=== PATIENT | male | born 1940 | race Caucasian/White ===

== ENCOUNTER 2017-08-08 17:15 | Emergency (ER) | payer MEDICARE ==
[~2017-08-08] VITALS: Ht 182.9 cm; Wt 95.0 kg
[2017-08-08 18:54] LABS: BASOPHILS % (AUTO) 0.5 % (0-1); EOSINOPHILS # (AUTO) 0.2 X10'3 (0-0.9); HEMATOCRIT 42.4 % (42.0-52.0); HEMOGLOBIN 14.8 g/dl (14.0-17.9); LYMPHOCYTES # (AUTO) 2.2 X10'3 (1.1-4.8); MEAN CORPUSCULAR VOLUME 94.3 FL (78-98); MEAN PLATELET VOLUME 10.7 FL (7.4-10.4); MONOCYTES # (AUTO) 0.7 X10'3 (0-0.9); MONOCYTES % (AUTO) 9.7 % (2-12); NEUTROPHILS # (AUTO) 3.8 X10'3 (1.8-7.7); NEUTROPHILS % (AUTO) 54.8 % (42-75); PLATELET COUNT 167 X10'3 (140-440); RED BLOOD COUNT 4.49 X10'6 (4.70-6.10); RED CELL DISTRIBUTION WIDTH 14.3 % (11.5-14.5)
[2017-08-08 19:04] LABS: INR 1.2 INR; PARTIAL THROMBOPLASTIN TIME 32 SECONDS (22-32)
[2017-08-08 19:11] LABS: ALANINE AMINOTRANSFERASE 34 U/L (12-78); ALBUMIN 3.1 G/DL (3.4-5.0); ALBUMIN/GLOBULIN RATIO 0.8 (1.1-1.5); ALKALINE PHOSPHATASE 63 IU/L (46-116); ANION GAP 12 (8-16); ASPARTATE AMINO TRANSFERASE 20 U/L (10-37); BILIRUBIN,TOTAL 0.4 MG/DL (0.1-1.0); BLOOD UREA NITROGEN 17 MG/DL (7-18); BUN/CREATININE RATIO 16.5 (5.4-32.0); CHLORIDE 104 MMOL/L (99-107); CREATININE 1.03 MG/DL (0.60-1.10); GLUCOSE 118 MG/DL (70-104); POTASSIUM 3.3 MMOL/L (3.5-5.1); SODIUM 144 MMOL/L (135-145); TOTAL CARBON DIOXIDE 28.5 MMOL/L (24-32); TOTAL PROTEIN 7.2 G/DL (6.4-8.2); TROPONIN I < 0.04 NG/ML (0.0-0.05); eGFR 70 ML/MIN
[2017-08-08 19:25] LABS: ETHANOL < 0.010 GM/DL (0.0-0.010)
[2017-08-08 20:44] LABS: CLARITY,URINE Clear (Clear); COLOR,URINE Yellow (Yellow); GLUCOSE, URINE Negative (Neg); KETONES,URINE Negative (Neg); LEUKOCYTE ESTERASE ,URINE Negative (Neg); NITRITES, URINE Negative (Neg); OCCULT BLOOD,URINE Negative (Neg); PH,URINE 5.5 (4.8-8.0); PROTEIN,URINE Negative (Neg)
[2017-08-08 20:46] LABS: UA COLLECTION TYPE NON-SPECIFIED
[2017-08-08 20:49] VITALS: BP 118/61
[2017-08-08 20:49] LABS: URINE AMPHETAMINE SCREEN NEGATIVE (Neg); URINE BARBITUATE SCREEN NEGATIVE (Neg); URINE BENZODIAZEPINES SCREEN NEGATIVE (Neg); URINE CANNABINOID SCREEN NEGATIVE (Neg); URINE COCAINE SCREEN NEGATIVE (Neg); URINE METHADONE SCREEN NEGATIVE (Neg); URINE OPIATE SCREEN NEGATIVE (Neg); URINE PHENCYCLIDINE SCREEN NEGATIVE (Neg)
[2017-08-08 21:10] LABS: LARGE PLATELETS FEW; PLATELET ESTIMATE NORMAL
== END 2017-08-08 20:50 | disposition home or self-care (01) ==
LOC: ER 17:16
DX: H53.40 Unspecified visual field defects (principal); F12.10 Cannabis abuse, uncomplicated; E03.9 Hypothyroidism, unspecified; I48.91 Unspecified atrial fibrillation
CPT/HCPCS: 36415; 70450; 71045; 80053; 80305; 80320; 81003; 82140; 82948; 84439; 84443; 84484; 85025; 85610; 85730; 87040; 93005; 99285

== ENCOUNTER → 2018-07-20 | Emergency (ER) | payer MEDICARE ==
[~2018-07-20] VITALS: Ht 182.9 cm; Wt 92.7 kg
[~2018-07-20] MED LIST: GABA100C PO
[2018-07-20 12:01] VITALS: BP 129/74
== END | disposition home or self-care (01) ==
LOC: ER 11:32
DX: M54.16 Radiculopathy, lumbar region (principal); M25.552 Pain in left hip; I48.91 Unspecified atrial fibrillation; I10 Essential (primary) hypertension; E03.9 Hypothyroidism, unspecified; F12.90 Cannabis use, unspecified, uncomplicated; Z79.899 Other long term (current) drug therapy; W18.39XA Other fall on same level, initial encounter; Y93.89 Activity, other specified; Y92.89 Other specified places as the place of occurrence of the external cause; Y99.8 Other external cause status
CPT/HCPCS: 72100; 73502; 99284

== ENCOUNTER 2018-09-10 08:15 | Emergency (ER) | payer MEDICARE ==
[~2018-09-10] VITALS: Ht 182.9 cm; Wt 77.0 kg
[2018-09-10 08:22] VITALS: BP 130/75
[2018-09-10] MEDS ORDERED: CEPH-572 PO (09:01)
[2018-09-10] MEDS ORDERED: TETanus/Pertussis (Acell)/Diphther VAC/PF (Tdap-Adult) 0.5ml syringe IM ONE (09:10)
== END 2018-09-10 09:28 | disposition home or self-care (01) ==
LOC: ER 08:16
DX: L03.032 Cellulitis of left toe (principal); I48.91 Unspecified atrial fibrillation; I10 Essential (primary) hypertension; E03.9 Hypothyroidism, unspecified; F12.90 Cannabis use, unspecified, uncomplicated; Z79.899 Other long term (current) drug therapy
CPT/HCPCS: 90471; 90715; 99283

== ENCOUNTER 2018-09-14 20:18 | Emergency (ER) | payer MEDICARE ==
[~2018-09-14] VITALS: Ht 182.9 cm; Wt 90.0 kg
[~2018-09-14 20:18] MED LIST changes: +CEPH-572 PO
[2018-09-14 20:31] VITALS: BP 127/84
[2018-09-14] MEDS ORDERED: LIDOcaine 1% w/epiNEPHrine 1:200,000 30ml vial IM ONE (21:25)
[2018-09-14] MEDS ORDERED: SULF1TAB49 PO (21:28)
== END 2018-09-14 23:39 | disposition home or self-care (01) ==
LOC: ER 20:19
DX: L02.612 Cutaneous abscess of left foot (principal); I48.91 Unspecified atrial fibrillation; I10 Essential (primary) hypertension; E03.9 Hypothyroidism, unspecified; F12.90 Cannabis use, unspecified, uncomplicated; Z79.899 Other long term (current) drug therapy
CPT/HCPCS: 10060; 87070; 99283; J3490

== ENCOUNTER 2018-09-22 15:28 | Emergency (ER) | payer MEDICARE ==
[~2018-09-22] VITALS: Ht 182.9 cm; Wt 90.0 kg
[~2018-09-22 15:28] MED LIST changes: -CEPH-572 PO; +SULF1TAB49 PO
[2018-09-22] MEDS ORDERED: methylPREDNISolone sod succ 125mg/2ml vial IM ONE (16:30)
[2018-09-22] MEDS ORDERED: METH4TAB81 PO (16:37)
[2018-09-22] MEDS ORDERED: PRED20TA PO (16:37)
[2018-09-22 16:59] VITALS: BP 106/50
== END 2018-09-22 17:07 | disposition home or self-care (01) ==
LOC: ER 15:29
DX: M11.272 Other chondrocalcinosis, left ankle and foot (principal); I48.91 Unspecified atrial fibrillation; I10 Essential (primary) hypertension; E03.9 Hypothyroidism, unspecified; F12.90 Cannabis use, unspecified, uncomplicated
CPT/HCPCS: 73660; 96372; 99284; J2930

== ENCOUNTER 2018-11-20 21:00 | Emergency (ER) | payer MEDICARE ==
[~2018-11-20] VITALS: Ht 182.9 cm; Wt 90.0 kg
[~2018-11-20 21:00] MED LIST changes: +METH4TAB81 PO; -SULF1TAB49 PO
[2018-11-20 23:40] VITALS: BP 120/54
== END 2018-11-20 23:43 | disposition home or self-care (01) ==
LOC: ER 21:01
DX: T63.441A Toxic effect of venom of bees, accidental (unintentional), initial encounter (principal); R60.0 Localized edema; I48.91 Unspecified atrial fibrillation; I10 Essential (primary) hypertension; E03.9 Hypothyroidism, unspecified; F12.90 Cannabis use, unspecified, uncomplicated; Z79.899 Other long term (current) drug therapy; Y92.89 Other specified places as the place of occurrence of the external cause
CPT/HCPCS: 99283

== ENCOUNTER 2019-11-23 13:38 | Emergency (ER) | payer MEDICARE ==
[~2019-11-23] VITALS: Ht 182.9 cm; Wt 75.2 kg
[2019-11-23 13:42] VITALS: BP 132/66
[2019-11-23] MEDS ORDERED: COLC0.6T69 PO (15:16)
== END 2019-11-23 15:29 | disposition home or self-care (01) ==
LOC: ER 13:39
DX: M10.042 Idiopathic gout, left hand (principal); M10.041 Idiopathic gout, right hand; I48.91 Unspecified atrial fibrillation; I10 Essential (primary) hypertension; E03.9 Hypothyroidism, unspecified; F12.90 Cannabis use, unspecified, uncomplicated; Z72.89 Other problems related to lifestyle; Z87.891 Personal history of nicotine dependence; Z79.899 Other long term (current) drug therapy
CPT/HCPCS: 99283